=== PATIENT | female | born 1950 | race Caucasian/White ===

== ENCOUNTER 2022-05-27 12:14 | Emergency (ER) | payer BC ==
[2022-05-27] MEDS ORDERED: Ondansetron PF 4 MG/2 ML Vial ONE (13:15)
[2022-05-27] MEDS ORDERED: Acetaminophen 500 MG TAB ONE (13:15)
[2022-05-27 13:31] LABS: #Basophils 0.2 thou/uL (0.0-0.2); #Lymphocytes 0.5 thou/uL (1.20-3.40); #Monocytes 0.6 thou/uL (0.11-0.59); #Neutrophils 6.1 thou/uL (1.40-6.50); %Basophils 2.2 % (0.0-1.0); %Eosinophils 0.1 % (0.0-10.0); %Lymphocytes 7.2 % (21.0-51.0); %Monocytes 8.3 % (0.0-10.0); %Neutrophils 82.2 % (42.0-75.0); Hemoglobin 15.4 g/dL (12.0-16.0); Mean Corpuscular HGB CONC 33.7 g/dL (32.0-36.0); Mean Corpuscular Hemoglobin 30.3 pg (27.0-31.0); Mean Corpuscular Volume 89.9 fl (78.0-98.0); Mean Platelet Volume 9.1 fL (7.4-10.4); Platelet Count 198 thou/uL (130-400); RBC Distribution Width 12.4 % (11.5-14.5); Red Blood Cell (RBC) Count 5.09 mill/uL (4.20-5.40); White Blood Cell (WBC) Count 7.4 thou/uL (4.8-10.8)
[2022-05-27 14:20] LABS: ALT (SGPT) 23 U/L (8-55); AST (SGOT) 24 U/L (5-34); Albumin 4.2 g/dL (3.4-4.8); Alkaline Phosphatase 68 U/L (40-110); Anion Gap 15 mmol/L (10-20); BUN (Urea Nitrogen) 14 mg/dL (9.8-20.1); Bilirubin, Total 0.6 mg/dL (0.2-1.2); Calc. Creatinine Clearance 0 mL/min (70-130); Calcium 9.1 mg/dL (7.8-10.44); Carbon Dioxide 16 mmol/L (23-31); Chloride 103 mmol/L (98-107); Estimated GFR 81; Globulin 3.1 g/dL (2.4-3.5); Glucose 122 mg/dL (83-110); Lipase 19 U/L (8-78); Protein, Total 7.3 g/dL (5.8-8.1); Sodium 130 mmol/L (136-145)
== END 2022-05-27 14:48 | disposition home or self-care (01) ==
LOC: BURERS 12:14
DX: J10.1 Influenza due to other identified influenza virus with other respiratory manifestations (principal); Z20.822 Contact with and (suspected) exposure to COVID-19; I10 Essential (primary) hypertension
CPT/HCPCS: 36415; 71045; 80053; 83605; 83690; 84484; 85025; 87804; 93005; 96361; 96374; J2405; U0003; U0005